=== PATIENT | female | born 1955 | race Caucasian/White ===

== ENCOUNTER → 2017-04-15 | Outpatient (CLI) | payer BC | END | disposition home or self-care (01) | LOC: LABPAT 10:41 | PROVIDERS: ATTEND Surgery | DX: Z01.810 Encounter for preprocedural cardiovascular examination (principal); Z01.818 Encounter for other preprocedural examination; I10 Essential (primary) hypertension | CPT/HCPCS: 36415; 86850; 86900; 86901; 93005 ==

== ENCOUNTER 2017-04-17 07:49 | Day surgery (SDC) | payer BC ==
[2017-04-12 11:42] VITALS: BMI 26.6
[~2017-04-17 07:49] MED LIST: DEXAMETHASONE SOD PHOSPHATE 10 MG/ML 1 ML VIAL IV ONE; FAMOTIDINE 20 MG/2 ML VIAL IV PRN; HEPARIN SODIUM,PORCINE 5,000 UNIT/ML 1 ML VIAL SQ ONE; LACTATED RINGERS 1,000 ML IV SCH; LIDOCAINE 1% 20 ML VIAL (10MG/ML) FOR IV START INTRADERMA PRN; MIDAZOLAM 2 MG/2 ML VIAL IV PRN; ceFAZolin 2 GM in SODIUM CHLORIDE 0.9% 100 ML IVPB ONE
[2017-04-17 08:23] VITALS: RESP 16
[2017-04-17] MEDS: ONDANSETRON 4 MG/2 ML VIAL IVP PRN ×2 (08:43→11:44)
[2017-04-17] MEDS ORDERED: SCOPOLAMINE 1.5MG/72HR PATCH TRANSDERM STA (08:44)
--- NOTE | 2017-04-17 08:47 | P.GSHP ---
History of Present Illness H&P Date: 04/17/17 Chief Complaint: Incarcerated incisional hernia This is a 61-year-old female with a history of perforated diverticulitis. She has developed an incarcerated incisional hernia located near her previous stoma site. She presents today for laparoscopic robotic-assisted repair. - Constitutional Constitutional: Reports as per HPI Past Medical History Past Medical History: Eye Disorder, Hyperlipidemia, Hypertension, Musculoskeletal Disorder, Thyroid Disorder Additional Past Medical History / Comment(s): HX PERFORATED BOWEL D/T DIVERTICULITIS, HAD MACULA PEEL ANTONIO EYES.CATARACTS; CHRONIC BACK PAIN. History of Any Multi-Drug Resistant Organisms: None Reported Past Surgical History: Bowel Resection, Orthopedic Surgery, Tubal Ligation Additional Past Surgical History / Comment(s): BOWEL RESECTION;COLONOSCOPY; Colostomy & then Reversal ; ANTONIO EYE PROC (RETINA). RIGHT THUMB Past Anesthesia/Blood Transfusion Reactions: Motion Sickness Past Psychological History: Anxiety, Depression Smoking Status: Former smoker Past Alcohol Use History: Rare Additional Past Alcohol Use History / Comment(s): STARTED SMOKING AT AGE 16, QUIT AT AGE 34, SMOKED 1PPD. Past Drug Use History: None Reported - Past Family History Mother Family Medical History: Cancer, Deep Vein Thrombosis (DVT) Medications and Allergies Home Medications Medication Instructions Recorded Confirmed Type Atorvastatin [Lipitor] 40 mg PO HS 06/28/16 04/17/17 History Baclofen [Lioresal] 20 mg PO BID PRN 06/28/16 04/17/17 History HYDROcodone/APAP 7.5-325MG [[place] 1 tab PO BID PRN 06/28/16 04/17/17 History 7.5-325] Levothyroxine Sodium [Synthroid] 88 mcg PO DAILY 06/28/16 04/17/17 History Losartan/Hydrochlorothiazide 1 tab PO HS@1800 06/28/16 04/17/17 History [Losartan-Hctz 100-12.5 mg Tab] Sertraline [Zoloft] 100 mg PO HS 06/28/16 04/17/17 History Allergies Allergy/AdvReac Type Severity Reaction Status Date / Time Sulfa (Sulfonamide Allergy Rash/Hives Verified 04/12/17 11:22 Antibiotics) Surgical - Exam Vital Signs Temp Pulse Resp BP Pulse Ox 97.6 F 69 16 137/62 96 04/17/17 08:21 04/17/17 08:21 04/17/17 08:21 04/17/17 08:21 04/17/17 08:21 - General well developed, no distress - Eyes PERRL - ENT normal pinna - Neck no masses - Respiratory normal expansion - Cardiovascular Rhythm: regular - Abdomen Abdomen: soft, non tender Hernia: incisional (Incisional hernia located at previous stoma site) Assessment and Plan Plan: Incarcerated incisional hernia. We'll perform laparoscopic robotic assistance repair. Patient aware the risk of conversion to open procedure due to possible adhesions.
[2017-04-17 08:51] LABS: Basophils % (A) 0 %; CH 29.8; CHCM 35.8; Eosinophils # (A) 0.1 k/uL (0-0.7); Eosinophils % (A) 2 %; HCT 40.9 % (34.0-46.0); HDW 3.35; HGB 14.4 gm/dL (11.4-16.0); Luc # (Auto) 0.17; Luc % (Auto) 2; Lymphocytes # (A) 2.4 k/uL (1.0-4.8); Lymphocytes % (A) 34 %; MCH 29.6 pg (25.0-35.0); MCHC 35.3 g/dL (31.0-37.0); MCV 83.8 fL (80.0-100.0); Mean Platelet Volume 7.8; Monocytes # (A) 0.3 k/uL (0-1.0); Monocytes % (A) 4 %; Neutrophils % (A) 57 %; RBC 4.88 m/uL (3.80-5.40); RDW 13.8 % (11.5-15.5); WBC 7.1 k/uL (3.8-10.6); WBC (Perox) 7.04
[2017-04-17 09:00] LABS: Anion Gap 10 mmol/L; Blood Urea Nitrogen 10 mg/dL (7-17); Carbon Dioxide 29 mmol/L (22-30); Chloride 105 mmol/L (98-107); Glucose 102 mg/dL (74-99); Non-African American GFR(MDRD) >60 (>60 ml/min/1.73 sqM); Potassium 3.7 mmol/L (3.5-5.1); Sodium 144 mmol/L (137-145)
[2017-04-17 09:01] LABS: Calcium 10.4 mg/dL (8.4-10.2)
[2017-04-17] MEDS ORDERED: PHENYLEPHRINE-0.9% NACL SYG 1 MG/10 ML SYRINGE ONE (09:08)
[2017-04-17] MEDS ORDERED: MIDAZOLAM 2 MG/2 ML VIAL ONE (09:08)
[2017-04-17] MEDS ORDERED: fentaNYL (PF) 50 MCG/ML 2 ML AMP ONE (09:08)
[2017-04-17] MEDS ORDERED: LIDOCAINE 1% INJ 10MG/ML (20 ML MDV) ONE (09:08)
[2017-04-17] MEDS ORDERED: SUCCINYLCHOLINE CHLORIDE 100 MG/5 ML SYR IV ONE (09:08)
[2017-04-17] MEDS ORDERED: GLYCOPYRROLATE 0.2 MG/ML 2 ML VIAL ONE (09:08)
[2017-04-17] MEDS ORDERED: PROPOFOL 10 MG/ML 20 ML VIAL IV ONE (09:08)
[2017-04-17] MEDS ORDERED: ROCURONIUM BROMIDE 10 MG/ML 10 ML VIAL IV ONE (09:08)
[2017-04-17] MEDS ORDERED: NEOSTIGMINE 1 MG/ML 10 ML VIAL ONE (09:08)
[2017-04-17] MEDS ORDERED: BUPIVACAIN-EPI 0.25%-1:200,000 30 ML VIAL SQ ONE (09:35)
--- NOTE | 2017-04-17 10:41 | P.OP ---
Date of Procedure: 04/17/17 Preoperative Diagnosis: Incarcerated incisional hernia Postoperative Diagnosis: Incarcerated incisional hernia Procedure(s) Performed: Laparoscopic robotic-assisted repair of incarcerated incisional hernia Implants: Anesthesia: ABELARDOA Surgeon: Prasad Bhagat Estimated Blood Loss (ml): 5 Pathology: none sent Condition: stable Disposition: PACU Indications for Procedure: Operative Findings: Description of Procedure: The patient's placed on the operating table in the supine position. She received general anesthesia. Her abdomen was prepped and draped in usual sterile fashion. The patient had an incarcerated incisional hernia located at her previous colostomy site. The skin incision sites were anesthetized 1% local Xylocaine. And then using a Veress needle in the right upper quadrant the peritoneal cavity is entered and then the peritoneal cavity was insufflated. After adequate insufflation the a 5 mm blade was trocar is placed in the right upper quadrant and then the Veress needle was removed and then a 8 mm robotic trochars placed in the right lower quadrant and a 12 mm trocar was placed in the right lateral position. Patient had extensive adhesions along her midline incision. Patient was docked to the robot. And then using the hook cautery and fenestrated bipolar grasper the adhesions were lysed. The incarcerated omentum was removed from the hernia site using left cautery and blunt and sharp dissection. The fascial defect was then closed using oh strap suture. And then the repair was buttressed with ventral light ST mesh this was secured with 20 the lock suture. The needles were cut and then the patient was undocked the robot. The needles were retrieved. The trochars withdrawn. The fascial 12 mm trocar site was closed with 0 Ethibond suture. Skin was closed interrupted 3-0 Monocryl suture. Dermabond applied. Patient was sent to recovery room stable condition.
[2017-04-17 11:01] VITALS: TEMP 97.2
[2017-04-17] MEDS ORDERED: KETOROLAC 30 MG/ML 1 ML VIAL IVP ONE (11:11)
[2017-04-17] MEDS: HYDROmorphone 1 MG/ML 1 ML SYRINGE IVP PRN ×4 (11:20→11:49)
[2017-04-17] MEDS ORDERED: ENALAPRILAT 1.25 MG/ML 1 ML VIAL IVP ONE (11:27)
[2017-04-17] MEDS ORDERED: HYDROcodone/APAP 7.5-325MG 1 EACH TAB PO ONE (13:44)
[2017-04-17 14:36] VITALS: BP 139/65; PULSE 60
== END 2017-04-17 14:36 | disposition home or self-care (01) ==
LOC: OR 07:49
PROVIDERS: ATTEND Surgery
DX: K43.0 Incisional hernia with obstruction, without gangrene (principal); K66.0 Peritoneal adhesions (postprocedural) (postinfection); I10 Essential (primary) hypertension; E78.5 Hyperlipidemia, unspecified; E07.9 Disorder of thyroid, unspecified; F41.9 Anxiety disorder, unspecified; F32.9 Major depressive disorder, single episode, unspecified; F39 Unspecified mood [affective] disorder; Z88.2 Allergy status to sulfonamides; Z79.899 Other long term (current) drug therapy; Z87.891 Personal history of nicotine dependence; Z98.51 Tubal ligation status; Z90.49 Acquired absence of other specified parts of digestive tract
CPT/HCPCS: 49655; 80048; 85025; C1781; J2250; J1644; J1100; J2710; J0690; J2405; J2001; J3010; J1885; J1170; J2370; J0330; J2704; 36415; 86850; 86900; 86901

== ENCOUNTER 2017-08-09 10:57 | Day surgery (SDC) | payer BC ==
[2017-08-06 12:14] VITALS: BMI 26.1
[~2017-08-09 10:57] MED LIST changes: -FAMOTIDINE 20 MG/2 ML VIAL IV PRN; -LACTATED RINGERS 1,000 ML IV SCH; +ONDANSETRON 4 MG/2 ML VIAL IVP ONE; +SCOPOLAMINE 1.5MG/72HR PATCH TRANSDERM ONE
[2017-08-09] MEDS ORDERED: LACTATED RINGERS 1,000 ML IV ONE ×3 (11:51→14:49)
--- NOTE | 2017-08-09 12:03 | P.GSHP ---
History of Present Illness H&P Date: 08/09/17 Chief Complaint: Incisional hernia This 61-year-old female referred from Dr. montejo. Patient has had a previous perforated diverticulitis with colostomy and subsequent reversal of colostomy. She has developed an incisional hernia located along her midline incision. She presents today for open repair of recurrent incisional hernia. Past Medical History Past Medical History: Hyperlipidemia, Hypertension, Musculoskeletal Disorder, Thyroid Disorder Additional Past Medical History / Comment(s): HX PERFORATED BOWEL D/T DIVERTICULITIS, CHRONIC BACK PAIN. History of Any Multi-Drug Resistant Organisms: None Reported Past Surgical History: Bowel Resection, Orthopedic Surgery, Tubal Ligation Additional Past Surgical History / Comment(s): BOWEL RESECTION;COLONOSCOPY; Colostomy & then Reversal ; ANTONIO EYE PROC (RETINA);Cataracts; RIGHT THUMB; Hernia repair Past Anesthesia/Blood Transfusion Reactions: Motion Sickness Smoking Status: Former smoker - Past Family History Mother Family Medical History: Cancer, Deep Vein Thrombosis (DVT) Medications and Allergies Home Medications Medication Instructions Recorded Confirmed Type Atorvastatin [Lipitor] 40 mg PO HS 06/28/16 08/06/17 History Baclofen [Lioresal] 20 mg PO BID PRN 06/28/16 08/06/17 History Levothyroxine Sodium [Synthroid] 88 mcg PO DAILY 06/28/16 08/06/17 History Losartan/Hydrochlorothiazide 1 tab PO HS@1800 06/28/16 08/06/17 History [Losartan-Hctz 100-12.5 mg Tab] Sertraline [Zoloft] 100 mg PO HS 06/28/16 08/06/17 History Docusate [Colace] 100 mg PO BID #20 capsule 04/17/17 08/06/17 Rx HYDROcodone/APAP 7.5-325MG [[place] 1 each PO Q4H PRN #60 tab 04/17/17 08/06/17 Rx 7.5] Cholecalciferol (Vitamin D3) 2,000 unit PO DAILY 08/06/17 08/06/17 History [Vitamin D3] Multivitamins, Thera [Multivitamin 1 tab PO DAILY 08/06/17 08/06/17 History (formulary)] Allergies Allergy/AdvReac Type Severity Reaction Status Date / Time Sulfa (Sulfonamide Allergy Rash/Hives Verified 08/06/17 12:01 Antibiotics) Surgical - Exam Vital Signs Temp Pulse Resp BP Pulse Ox 98.0 F 55 L 18 142/67 97 08/09/17 11:43 08/09/17 11:43 08/09/17 11:43 08/09/17 11:43 08/09/17 11:43 - General well developed, no distress - Eyes PERRL - ENT normal pinna - Neck no masses - Respiratory normal expansion - Cardiovascular Rhythm: regular - Abdomen Abdomen: soft, non tender Hernia: incisional Assessment and Plan Plan: Recurrent midline incisional hernia. We'll perform open repair .
[2017-08-09] MEDS ORDERED: HYDROmorphone (PF) 1 MG/ML ONE (13:05)
[2017-08-09] MEDS ORDERED: GLYCOPYRROLATE 0.2 MG/ML 2 ML VIAL ONE (13:05)
[2017-08-09] MEDS ORDERED: SUCCINYLCHOLINE CHLORIDE 100 MG/5 ML SYR IV ONE (13:05)
[2017-08-09] MEDS ORDERED: ROCURONIUM BROMIDE 10 MG/ML 10 ML VIAL IV ONE (13:05)
[2017-08-09] MEDS ORDERED: MIDAZOLAM 2 MG/2 ML VIAL ONE (13:05)
[2017-08-09] MEDS ORDERED: fentaNYL (PF) 50 MCG/ML 2 ML AMP ONE (13:05)
[2017-08-09] MEDS ORDERED: PROPOFOL 10 MG/ML 20 ML VIAL IV ONE (13:05)
[2017-08-09] MEDS ORDERED: NEOSTIGMINE 1 MG/ML 10 ML VIAL ONE (13:05)
[2017-08-09] MEDS ORDERED: hydrALAZINE HCL 20 MG/ML 1 ML VIAL ONE (13:05)
[2017-08-09] MEDS ORDERED: LIDOCAINE 1% INJ 10MG/ML (20 ML MDV) ONE (13:05)
[2017-08-09] MEDS ORDERED: HYDROmorphone 0.5 MG/0.5 ML SYRINGE IVP PRN (14:49)
[2017-08-09] MEDS ORDERED: METOCLOPRAMIDE 5 MG/ML 2 ML VIAL IVP PRN (14:49)
[2017-08-09] MEDS ORDERED: traMADol 50 MG TAB PO PRN (14:49)
[2017-08-09] MEDS ORDERED: NALOXONE 0.4 MG/ML 1 ML VIAL IV PRN (14:49)
[2017-08-09] MEDS ORDERED: ACETAMINOPHEN TAB 325 MG TAB PO PRN (14:49)
[2017-08-09] MEDS ORDERED: ONDANSETRON 4 MG/2 ML VIAL IVP PRN (14:49)
--- NOTE | 2017-08-09 14:58 | P.OP ---
Date of Procedure: 08/09/17 Preoperative Diagnosis: Recurrent incisional hernia Postoperative Diagnosis: Recurrent incisional hernia Procedure(s) Performed: Repair of recurrent incisional hernia with mesh Anesthesia: HENOK Surgeon: Prasad Bhagat Estimated Blood Loss (ml): 100 Pathology: none sent Condition: stable Disposition: PACU Description of Procedure: The patient's placed the operative table in the supine position. She received general anesthesia. Her abdomen was prepped and draped usual sterile fashion. The patient had a midline laparotomy scar. There were incisional hernias located at the superior and inferior portion of the scar. The skin was divided midline and the subcutaneous tissue divided. The fascial defect was visualized and appeared mostly the entire laparotomy scar. At this point electrocautery used to the subcutaneous tissues off of the fascia. The fascia was then repaired using 0 Ethibond pop-off suture. The fascia was then repaired using Bard soft mesh. This was secured with a secure strap tacker. The BRENDA drains placed on top of the repair and brought through separate stab incision and the drain secured with 2-0 nylon. Michael's fascia was closed with 0 Vicryl. Skin was closed felipa. TopiFoam dressing was applied. And an abdominal binder was applied to the patient. Patient was sent to recovery in stable condition.
[2017-08-09] MEDS: HYDROmorphone 0.5 MG/0.5 ML SYRINGE IVP PRN ×2 (15:24→15:30)
[2017-08-09] MEDS ORDERED: BACLOFEN 10 MG TAB PO PRN (16:16)
[2017-08-09] MEDS ORDERED: NON-FORMULARY DRUG (Losartan/Hydrochlorothiazide [Losartan-Hctz 100-12.5 Mg Tab] 1 TAB) PO SCH (18:00)
[2017-08-09] MEDS: KETOROLAC 30 MG/ML 1 ML VIAL IVP SCH ×2 (18:56→20:56)
[2017-08-09] MEDS: LACTATED RINGERS 1,000 ML IV SCH (18:59)
[2017-08-09] MEDS: HYDROcodone/APAP 5-325MG 1 EACH TAB PO PRN (19:20)
[2017-08-09] MEDS: HYDROCHLOROTHIAZIDE 12.5 MG CAP PO SCH (19:21)
[2017-08-09] MEDS: LOSARTAN 50 MG TAB PO SCH (19:21)
[2017-08-09] MEDS: ATORVASTATIN 40 MG TAB PO SCH (20:18)
[2017-08-09] MEDS: DOCUSATE 100 MG CAP PO SCH (20:18)
[2017-08-09] MEDS: SERTRALINE 100 MG TAB PO SCH (20:18)
[2017-08-09] MEDS ORDERED: DOCUSATE 100 MG CAP PO SCH (21:00)
[2017-08-10] MEDS: HYDROcodone/APAP 5-325MG 1 EACH TAB PO PRN ×4 (01:50→19:36)
[2017-08-10] MEDS: KETOROLAC 30 MG/ML 1 ML VIAL IVP SCH ×4 (03:24→20:34)
[2017-08-10] MEDS: LEVOTHYROXINE 88 MCG TAB PO SCH (05:38)
[2017-08-10] MEDS: LACTATED RINGERS 1,000 ML IV SCH ×3 (06:52→14:37)
[2017-08-10] MEDS: DOCUSATE 100 MG CAP PO SCH ×2 (07:42→20:35)
[2017-08-10] MEDS: ENOXAPARIN 40 MG/0.4 ML SYRINGE SQ SCH (07:42)
--- NOTE | 2017-08-10 12:00 | P.PN ---
Subjective Principal diagnosis: Incisional hernia 61-year-old female seen and examined at bedside. She is comfortable status post incisional hernia repair with mesh. Her BRENDA drain is in place with serosanguinous output. She states her pain is controlled. She is tolerating her regular diet. She has no additional complaints at this time. Objective - Vital Signs Vital signs: Vital Signs Temp 97.9 F 08/10/17 07:00 Pulse 81 08/10/17 07:00 Resp 16 08/10/17 07:00 BP 127/66 08/10/17 07:00 Pulse Ox 92 L 08/10/17 07:00 Intake & Output 08/09/17 08/10/17 08/10/17 18:59 06:59 18:59 Intake Total 1600 500 Output Total 160 1020 Balance 1440 -520 Weight 68.946 kg Intake: IV 1600 Intake, IV Titration 250 Amount Lactated Ringers 1,000 ml 250 @ 125 mls/hr IV .Q8H ONE Rx#:[id number] Oral 250 Output: Drainage 60 220 Abdomen 60 220 Urine 800 Estimated Blood Loss 100 - Constitutional General appearance: Present: cooperative, no acute distress - EENT Eyes: Present: EOMI, PERRLA ENT: Present: hearing grossly normal - Neck Neck: Present: normal ROM. Absent: lymphadenopathy, stridor - Respiratory Details: No difficulty with respiration - Cardiovascular Rhythm: regular Heart sounds: normal: S1, S2 - Gastrointestinal Gastrointestinal Comment(s): Soft, nontender, nondistended, no rebound, no guarding, incision site clean dry and intact, BRENDA drained with serosanguinous output. - Integumentary Integumentary: Present: normal turgor - Psychiatric Psychiatric: Present: A&O x's 3, appropriate affect, intact judgment & insight Assessment and Plan (1) Incisional hernia Status: Acute Plan: Status post incisional hernia repair with mesh Continue regular diet Obtain CBC BRENDA drain management Increase activity GI and DVT prophylaxis
[2017-08-10 12:25] LABS: Basophils % (A) 0 %; CH 28.6; CHCM 33.2; Eosinophils % (A) 0 %; HCT 33.9 % (34.0-46.0); HDW 2.82; HGB 11.3 gm/dL (11.4-16.0); Luc # (Auto) 0.16; Luc % (Auto) 2; Lymphocytes # (A) 2.5 k/uL (1.0-4.8); Lymphocytes % (A) 27 %; MCH 28.8 pg (25.0-35.0); MCHC 33.3 g/dL (31.0-37.0); MCV 86.6 fL (80.0-100.0); Mean Platelet Volume 8.6; Monocytes # (A) 0.4 k/uL (0-1.0); Monocytes % (A) 4 %; Neutrophils # (A) 6.3 k/uL (1.3-7.7); Neutrophils % (A) 67 %; RBC 3.91 m/uL (3.80-5.40); WBC 9.3 k/uL (3.8-10.6); WBC (Perox) 9.43
--- NOTE | 2017-08-10 13:13 | P.CONS ---
History of Present Illness - Reason for Consult Consult date: 08/10/17 Medical management - Chief Complaint Chronic incisional hernia - History of Present Illness This is a 61-year-old female with past medical history noted below significant for chronic incisional hernia that was admitted to the hospital and underwent repair of recurrent incisional hernia with mesh placement. She is postoperative day #1. She tolerated the procedure well. She is currently getting regular food. She is passing gas and having bowel movements. No events overnight. Pain is well controlled. Review of Systems Review of system: 14 points review of systems were obtained and were negative except to what were mentioned in the HPI. Past Medical History Past Medical History: Hyperlipidemia, Hypertension, Musculoskeletal Disorder, Thyroid Disorder Additional Past Medical History / Comment(s): HX PERFORATED BOWEL D/T DIVERTICULITIS, CHRONIC BACK PAIN. History of Any Multi-Drug Resistant Organisms: None Reported Past Surgical History: Bowel Resection, Orthopedic Surgery, Tubal Ligation Additional Past Surgical History / Comment(s): BOWEL RESECTION;COLONOSCOPY; Colostomy & then Reversal ; ANTONIO EYE PROC (RETINA);Cataracts; RIGHT THUMB; Hernia repair Past Anesthesia/Blood Transfusion Reactions: Motion Sickness Past Psychological History: Anxiety, Depression Smoking Status: Former smoker Past Alcohol Use History: Rare Additional Past Alcohol Use History / Comment(s): STARTED SMOKING AT AGE 16, QUIT AT AGE 34, SMOKED 1PPD. Past Drug Use History: None Reported - Past Family History Mother Family Medical History: Cancer, Deep Vein Thrombosis (DVT) Medications and Allergies Home Medications Medication Instructions Recorded Confirmed Type Atorvastatin [Lipitor] 40 mg PO HS 06/28/16 08/06/17 History Baclofen [Lioresal] 20 mg PO BID PRN 06/28/16 08/06/17 History Levothyroxine Sodium [Synthroid] 88 mcg PO DAILY 06/28/16 08/06/17 History Losartan/Hydrochlorothiazide 1 tab PO HS@1800 06/28/16 08/06/17 History [Losartan-Hctz 100-12.5 mg Tab] Sertraline [Zoloft] 100 mg PO HS 06/28/16 08/06/17 History Docusate [Colace] 100 mg PO BID #20 capsule 04/17/17 08/06/17 Rx HYDROcodone/APAP 7.5-325MG [[place] 1 each PO Q4H PRN #60 tab 04/17/17 08/06/17 Rx 7.5] Cholecalciferol (Vitamin D3) 2,000 unit PO DAILY 08/06/17 08/06/17 History [Vitamin D3] Multivitamins, Thera [Multivitamin 1 tab PO DAILY 08/06/17 08/06/17 History (formulary)] Allergies Allergy/AdvReac Type Severity Reaction Status Date / Time Sulfa (Sulfonamide Allergy Rash/Hives Verified 08/06/17 12:01 Antibiotics) Physical Exam Vitals: Vital Signs Temp Pulse Pulse Resp BP Pulse Ox 08/10/17 07:00 97.9 F 81 16 127/66 92 L 08/09/17 23:59 98.1 F 68 16 119/61 94 L 08/09/17 19:14 97.9 F 72 17 150/72 98 08/09/17 17:59 86 140/65 08/09/17 17:45 86 130/67 08/09/17 17:30 82 123/61 08/09/17 17:15 79 129/69 08/09/17 17:00 79 135/72 08/09/17 16:45 79 131/59 08/09/17 16:30 86 135/68 08/09/17 16:15 93 148/85 08/09/17 16:00 97.3 F L 96 16 154/71 93 L 08/09/17 15:25 90 16 140/60 94 L 08/09/17 15:10 89 16 148/68 97 08/09/17 14:55 84 16 137/63 97 08/09/17 14:40 98.3 F 87 15 141/63 98 Intake and Output 08/09/17 08/10/17 08/10/17 22:59 06:59 14:59 Intake Total 800 Output Total 920 160 Balance -120 -160 Intake: IV 300 Intake, IV Titration 250 Amount Lactated Ringers 1,000 ml 250 @ 125 mls/hr IV .Q8H ONE Rx#:[id number] Oral 250 Output: Drainage 120 160 Abdomen 120 160 Urine 800 Other: Weight 68.946 kg General: The patient is awake and alert, in no distress Eye: there is normal conjunctiva bilaterally. Neck: The neck is supple, there is no JVD. Cardiovascular: Normal S1-S2, no S3-S4, no murmurs. Respiratory: Lungs clear to auscultation bilaterally Gastrointestinal: Abdomen is soft, nontender Musculoskeletal: There is no pedal edema. Neurological:. Speech is normal. Skin: Skin is warm and dry Results CBC & Chem 7: 08/10/17 12:04 Labs: Abnormal Lab Results - Last 24 Hours (Table) 08/10/17 Range/Units 12:04 Hgb 11.3 L (11.4-16.0) gm/dL Hct 33.9 L (34.0-46.0) % Assessment and Plan Plan: 1. postoperative day #1 status post repair of recurrent incisional hernia with mesh placement: Continue postoperative care. Gen. surgery following closely. 2. Hypothyroidism maintained on levothyroxin 3. Mixed hyperlipidemia on Lipitor 4. DVT prophylaxis with subcu Lovenox Today, I reviewed her medication list and lab work results. Encouraged ambulation. Repeat lab work in the morning. Continue current regimen otherwise. Thank you very much for the consultation. I will continue to follow up on her closely.
[2017-08-10] MEDS: MULTIVITAMINS, THERA 1 EACH TAB PO SCH (13:15)
[2017-08-10] MEDS: CHOLECALCIFEROL 1,000 UNIT TAB PO SCH (13:15)
[2017-08-10] MEDS: HYDROCHLOROTHIAZIDE 12.5 MG CAP PO SCH (19:36)
[2017-08-10] MEDS: LOSARTAN 50 MG TAB PO SCH (19:37)
[2017-08-10] MEDS: ATORVASTATIN 40 MG TAB PO SCH (20:35)
[2017-08-10] MEDS: SERTRALINE 100 MG TAB PO SCH (20:35)
[2017-08-10 21:18] VITALS: RESP 16
[2017-08-11] MEDS: HYDROcodone/APAP 5-325MG 1 EACH TAB PO PRN ×2 (01:43→09:09)
[2017-08-11] MEDS: KETOROLAC 30 MG/ML 1 ML VIAL IVP SCH ×3 (05:39→11:47)
[2017-08-11] MEDS: LEVOTHYROXINE 88 MCG TAB PO SCH (05:52)
[2017-08-11 07:42] LABS: Basophils % (A) 1 %; CH 29.5; CHCM 33.7; Eosinophils % (A) 0 %; HCT 32.8 % (34.0-46.0); HDW 2.85; Luc # (Auto) 0.14; Luc % (Auto) 2; Lymphocytes # (A) 2.4 k/uL (1.0-4.8); Lymphocytes % (A) 34 %; MCH 29.5 pg (25.0-35.0); MCHC 33.6 g/dL (31.0-37.0); MCV 87.9 fL (80.0-100.0); Mean Platelet Volume 8.9; Monocytes # (A) 0.4 k/uL (0-1.0); Monocytes % (A) 6 %; Neutrophils % (A) 58 %; RBC 3.72 m/uL (3.80-5.40); RDW 14.7 % (11.5-15.5); WBC 6.9 k/uL (3.8-10.6)
[2017-08-11 08:08] LABS: ALT 24 U/L (9-52); AST 19 U/L (14-36); Alkaline Phosphatase 67 U/L (38-126); Anion Gap 6 mmol/L; Blood Urea Nitrogen 12 mg/dL (7-17); Calcium 9.7 mg/dL (8.4-10.2); Carbon Dioxide 29 mmol/L (22-30); Chloride 103 mmol/L (98-107); Glucose 84 mg/dL (74-99); Non-African American GFR(MDRD) >60 (>60 ml/min/1.73 sqM); Potassium 4.2 mmol/L (3.5-5.1); Sodium 138 mmol/L (137-145); Total Bilirubin 0.3 mg/dL (0.2-1.3); Total Protein 5.5 g/dL (6.3-8.2)
[2017-08-11 09:08] VITALS: BP 126/68; PULSE 79; TEMP 97.9
[2017-08-11] MEDS: DOCUSATE 100 MG CAP PO SCH (09:09)
[2017-08-11] MEDS: ENOXAPARIN 40 MG/0.4 ML SYRINGE SQ SCH (09:13)
--- NOTE | 2017-08-11 09:51 | P.DS ---
Providers Date of admission: 08/09/2017 Expected date of discharge: 08/11/17 Attending physician: Prasad Bhagat Consults: 08/09/17 14:49 Consult Physician Routine Consulting Provider: Mati Hall Consult Reason/Comments: Medical management Do you want consulting provider notified?: Yes Primary care physician: Stated None - Discharge Diagnosis(es) (1) Incisional hernia Current Visit: Yes Status: Acute Hospital Course: 61-year-old female presented for an elective incisional hernia repair. Postoperatively, the patient was placed on the surgical floor. The patient had a BRENDA drain in place. Postoperative day #1 the patient's pain improved. There was sanguinous output from the drain and hemoglobin was checked. On postoperative day #2 hemoglobin remained stable and output decreased from the BRENDA drain. The patient was then cleared for discharge. She is tolerating a regular diet and her pain is under control. Procedures: Incisional hernia repair with mesh Patient Condition at Discharge: Good Plan - Discharge Summary New Discharge Prescriptions: New Hydrochlorothiazide [Hydrodiuril] 12.5 mg PO 1800 cap HYDROcodone/APAP 7.5-325MG [[employer] 7.5-325] 1 tab PO Q6HR PRN #20 tab PRN Reason: Pain Continue Baclofen [Lioresal] 20 mg PO BID PRN PRN Reason: MUSCLE SPASMS Sertraline [Zoloft] 100 mg PO HS Levothyroxine Sodium [Synthroid] 88 mcg PO DAILY Atorvastatin [Lipitor] 40 mg PO HS Losartan/Hydrochlorothiazide [Losartan-Hctz 100-12.5 mg Tab] 1 tab PO HS@1800 Docusate [Colace] 100 mg PO BID #20 capsule Multivitamins, Thera [Multivitamin (formulary)] 1 tab PO DAILY Cholecalciferol (Vitamin D3) [Vitamin D3] 2,000 unit PO DAILY Discontinued HYDROcodone/APAP 7.5-325MG [[employer] 7.5] 1 each PO Q4H PRN #60 tab PRN Reason: Pain Discharge Medication List Atorvastatin [Lipitor] 40 mg PO HS 06/28/16 [History] Baclofen [Lioresal] 20 mg PO BID PRN 06/28/16 [History] Levothyroxine Sodium [Synthroid] 88 mcg PO DAILY 06/28/16 [History] Losartan/Hydrochlorothiazide [Losartan-Hctz 100-12.5 mg Tab] 1 tab PO HS@1800 [History] Sertraline [Zoloft] 100 mg PO HS 06/28/16 [History] Docusate [Colace] 100 mg PO BID #20 capsule 04/17/17 [Rx] Cholecalciferol (Vitamin D3) [Vitamin D3] 2,000 unit PO DAILY 08/06/17 [History] Multivitamins, Thera [Multivitamin (formulary)] 1 tab PO DAILY 08/06/17 [History ] HYDROcodone/APAP 7.5-325MG [[employer] 7.5-325] 1 tab PO Q6HR PRN #20 tab 08/11/17 [ Rx] Hydrochlorothiazide [Hydrodiuril] 12.5 mg PO 1800 cap 08/11/17 [Rx] Follow up Appointment(s)/Referral(s): Prasad Bhagat MD [STAFF PHYSICIAN] - 1 Week Patient Instructions/Handouts: *Sur[facility] - (Anesthesia) Discharge Instructions Outpatient Surgery, *[facility] - Scopalamine Patch Instructions, Kris-Green Drain Care (DC), Open Herniorrhaphy (DC), Incisional Hernia (DC) Activity/Diet/Wound Care/Special Instructions: Okay to remove dressing on 08/12/2017 Okay to shower Avoid putting soap directly on incision Discharge Disposition: HOME SELF-CARE
[2017-08-11] MEDS ORDERED: KETOROLAC 30 MG/ML 1 ML VIAL IVP SCH (11:45)
--- NOTE | 2017-08-11 12:30 | P.PN ---
Subjective Patient is cleared for discharge home today. No events overnight. Objective - Vital Signs Vital signs: Vital Signs Temp 97.9 F 08/11/17 07:00 Pulse 79 08/11/17 07:00 Resp 16 08/11/17 07:00 BP 126/68 08/11/17 07:00 Pulse Ox 94 L 08/11/17 07:00 Intake & Output 08/10/17 08/11/17 08/11/17 18:59 06:59 18:59 Intake Total 175 Output Total 885 140 Balance -710 -140 Intake: Oral 175 Output: Drainage 85 140 Abdomen 85 140 Urine 800 Other: # Voids 1 - Exam General: The patient is awake and alert, in no distress Eye: there is normal conjunctiva bilaterally. Neck: The neck is supple, there is no JVD. Cardiovascular: Normal S1-S2, no S3-S4, no murmurs. Respiratory: Lungs clear to auscultation bilaterally Gastrointestinal: Abdomen is soft, nontender Musculoskeletal: There is no pedal edema. Neurological:. Speech is normal. Skin: Skin is warm and dry - Labs CBC & Chem 7: 08/11/17 06:43 08/11/17 06:43 Labs: Abnormal Lab Results - Last 24 Hours (Table) 08/10/17 08/11/17 08/11/17 Range/Units 12:04 06:43 06:43 RBC 3.72 L (3.80-5.40) m/uL Hgb 11.3 L 11.0 L (11.4-16.0) gm/dL Hct 33.9 L 32.8 L (34.0-46.0) % Total Protein 5.5 L (6.3-8.2) g/dL Albumin 3.1 L (3.5-5.0) g/dL Assessment and Plan Plan: 1. postoperative day #2 status post repair of recurrent incisional hernia with mesh placement: Continue postoperative care. 2. Hypothyroidism maintained on levothyroxin 3. Mixed hyperlipidemia on Lipitor 4. DVT prophylaxis with subcu Lovenox Today, I reviewed her medication list and lab work results. Patient is medically cleared for discharge.
[2017-08-11] MEDS: CHOLECALCIFEROL 1,000 UNIT TAB PO SCH (12:55)
[2017-08-11] MEDS: MULTIVITAMINS, THERA 1 EACH TAB PO SCH (12:55)
== END 2017-08-11 14:37 | disposition home or self-care (01) ==
LOC: OR 10:57 → 3SUR 14:38 → OR 08-11 14:37
PROVIDERS: ATTEND Surgery
DX: K43.2 Incisional hernia without obstruction or gangrene (principal); Z87.19 Personal history of other diseases of the digestive system; E78.2 Mixed hyperlipidemia; I10 Essential (primary) hypertension; E03.9 Hypothyroidism, unspecified; G89.29 Other chronic pain; M54.9 Dorsalgia, unspecified; Z87.891 Personal history of nicotine dependence; F41.9 Anxiety disorder, unspecified; F32.9 Major depressive disorder, single episode, unspecified; Z79.899 Other long term (current) drug therapy; Z88.2 Allergy status to sulfonamides
CPT/HCPCS: 49565; 49568; 80053; 85025 ×2; C1781; J2250; J0360; J1644; J1100; J2710; J0690; J2405; J2001; J1650 ×2; J3010; J1885 ×3; J1170 ×2; J0330; J2704

== ENCOUNTER → 2021-05-09 | Outpatient (CLI) | payer MEDICARE ==
--- NOTE | 2021-05-10 08:44 | NM ---
EXAMINATION TYPE: NM parathyroid w/spect DATE OF EXAM: 05/09/2021 COMPARISON: NONE HISTORY: Hypercalcemia TECHNIQUE: Following administration of 25.5 mCi Tc99m Sestamibi. Anterior projection images of the neck and ches t were obtained 10 minutes and 3.5 hours post injection. SPECT images of the neck and chest were obt ained and reconstructed in three axes. FINDINGS: Thyroid tracer washout: Delayed images demonstrate near-complete tracer washout from the thyroid. Parathyroid uptake: Delayed imaging does demonstrates some faint residual uptake within the thyroid b ed bilaterally greater on the left. Normal uptake: There is physiological tracer uptake in the myocardium, liver, salivary glands, and th yroid gland. IMPRESSION: Faint residual uptake noted within the bilateral thyroid bed greater on the left. Recommend CT scan o f the soft tissue of the neck.
== END | disposition home or self-care (01) ==
LOC: RADNMMAIN 11:08
PROVIDERS: ATTEND Family Medicine
DX: E83.52 Hypercalcemia (principal)
CPT/HCPCS: 78071; A9500

== ENCOUNTER → 2021-05-31 | Outpatient (CLI) | payer MEDICARE ==
--- NOTE | 2021-05-31 14:45 | MR ---
EXAMINATION TYPE: MR shoulder LT wo con DATE OF EXAM: 05/31/2021 COMPARISON: 05/17/2021 HISTORY: L shoulder pain TECHNIQUE: Multiplanar, multisequence imaging of the left shoulder is performed without contrast. FINDINGS: Rotator Cuff: There is a full-thickness tear of the anterior fibers of the supraspinatus tendon 8 wit h thinning of the remainder of the tendon at the footplate. Infraspinatus tendinopathy is present. Th ere is subscapularis tendinopathy with fraying at the footplate. The teres minor tendon is intact. Acromioclavicular Joint: Degenerative changes are noted in the left acromioclavicular joint. There is fluid in the subacromial/subdeltoid bursa. Glenohumeral Joint: Defects of the glenohumeral joint with osteophytosis and subchondral edema and cy stic formation and small glenohumeral joint effusion. Labrum: There is a complex tear is seen throughout the anteroinferior labrum. Biceps Tendon: There is tendinopathy and partial-thickness tearing of the intra-articular portion of the long head biceps tendon. Bone marrow signal: No focal abnormal marrow signal is appreciated. Other: No additional significant abnormality is appreciated. IMPRESSION: 1. Full-thickness tear of the anterior leading fibers of the supraspinatus tendon with thinning of th e remainder of the tendon at the footplate. 2. Subscapularis tendinopathy with fraying at the footplate. 3. Infraspinatus tendinopathy. 4. Degenerative changes of the glenohumeral and acromioclavicular joint with fluid in the lateral hum eral joint and subacromial/subdeltoid bursa.
== END | disposition home or self-care (01) ==
LOC: RADMRIMAIN 12:50
PROVIDERS: ATTEND Orthopaedic Surgery
DX: M75.122 Complete rotator cuff tear or rupture of left shoulder, not specified as traumatic (principal); M19.012 Primary osteoarthritis, left shoulder; M67.814 Other specified disorders of tendon, left shoulder

== ENCOUNTER → 2021-06-15 | Outpatient (CLI) | payer MEDICARE ==
--- NOTE | 2021-06-15 14:11 | NM ---
EXAMINATION TYPE: NM stress cardiolite complete DATE OF EXAM: 06/15/2021 COMPARISON: NONE HISTORY: Chest pain, cardiac arrhythmia TECHNIQUE: After the intravenous administration of 9.3 mCi Tc 99m Sestamibi - Rest images obtained 4 5 minutes post injection. The patient exercised using a SHLOMO protocol and 1 minute prior to peak e xercise was injected with 25.1 mCi Tc 99m Sestamibi - Stress images obtained 20 minutes post injectio n. FINDINGS: Targeted heart rate was achieved during performance of the study. Review of stress and rest SPECT pavel ges demonstrates question of a small area of stress-induced reversible ischemia involving the inferio r wall septum. Gated analysis shows normal wall motion with an estimated left ventricular ejection f raction of 70 %. IMPRESSION: 1. Findings suspicious for small areas stress-induced reversible ischemia inferior wall of the myocar dial septum correlate clinically.
--- NOTE | 2021-06-15 16:04 | EST ---
EXERCISE STRESS AGE: 65 SEX: F HT: 5'4" WT: 150 lbs. PROTOCOL: Varinder STAGE: 3 DURATION OF EXERCISE: 7:00 HEART RATE REST: 46 BLOOD PRESSURE REST: 171/64 MAXIMUM HEART RATE ACHIEVED: 143 MAXIMUM BLOOD PRESSURE: 213/83 85% MPHR: 131 100% MPHR: 154 METS: 8.3 INDICATIONS: Arrhythmia CLINICAL INFORMATION: Baseline rhythm is sinus mechanism, rate 46, normal axis and intervals. Nonspecific ST- T wave changes. Baseline blood pressure 171/64 minute Hg. The patient exercised on Varinder protocol for 7 minutes, reaching a peak rate 143 beats per minute which is equal to 93% maximum predicted heart rate. Peak blood pressure 213/83 mmHg. Test was terminated secondary to fatigue. There was no chest pain. Electrocardiograph monitoring revealed a 1-1/[address]-segment depression that resolved gradually in recovery. Rare PVCs were noted. IMPRESSION: 1. Average exercise tolerance with no chest discomfort. 2. Abnormal stress echocardiogram with 1-1/[address]-segment depression with subsequently downsloping changes in the recovery. Those findings are suggestive of stress-induced ischemia. 3. Nuclear images will be reported separately. MMODL / IJN: [id number] /
== END | disposition home or self-care (01) ==
LOC: RADNMMAIN 08:21
PROVIDERS: ATTEND Family Medicine
DX: I49.9 Cardiac arrhythmia, unspecified (principal)
CPT/HCPCS: 93017; 78452; A9500

== ENCOUNTER 2022-04-12 08:33 | Day surgery (SDC) | payer MEDICARE ==
[2022-04-11 10:57] VITALS: BMI 27.4
[~2022-04-12 08:33] MED LIST changes: -DEXAMETHASONE SOD PHOSPHATE 10 MG/ML 1 ML VIAL IV ONE; -HEPARIN SODIUM,PORCINE 5,000 UNIT/ML 1 ML VIAL SQ ONE; +LACTATED RINGERS 1,000 ML IV SCH; -LIDOCAINE 1% 20 ML VIAL (10MG/ML) FOR IV START INTRADERMA PRN; -MIDAZOLAM 2 MG/2 ML VIAL IV PRN; -ONDANSETRON 4 MG/2 ML VIAL IVP ONE; -SCOPOLAMINE 1.5MG/72HR PATCH TRANSDERM ONE; -ceFAZolin 2 GM in SODIUM CHLORIDE 0.9% 100 ML IVPB ONE
[2022-04-12 09:24] VITALS: TEMP 97.9
[2022-04-12] MEDS ORDERED: PROPOFOL 10 MG/ML 20 ML VIAL IV ONE (10:48)
--- NOTE | 2022-04-12 10:51 | P.GSHP ---
History of Present Illness H&P Date: 04/12/22 Chief Complaint: GERD This a 66-year-old female who presents today for EGD. She's had complaints of GERD. She describes reflux of food intermittently. Past Medical History Past Medical History: Hyperlipidemia, Hypertension, Musculoskeletal Disorder, Thyroid Disorder Additional Past Medical History / Comment(s): Hx perforated bowel D/T Diverticulitis; c/o some vomiting after eating. Chronic back pain. Urine leakage. History of Any Multi-Drug Resistant Organisms: None Reported Past Surgical History: Bowel Resection, Hernia Repair, Orthopedic Surgery, Tubal Ligation Additional Past Surgical History / Comment(s): COLONOSCOPY; Bowel Resection w/ Colostomy & then Reversal; Bilat eye proc (RetinaNA); Cataracts; Rt Thumb; Hernia repair x2 Past Anesthesia/Blood Transfusion Reactions: Motion Sickness, Postoperative Nausea & Vomiting (PONV) Past Psychological History: Anxiety, Depression Smoking Status: Former smoker Past Alcohol Use History: Rare Additional Past Alcohol Use History / Comment(s): STARTED SMOKING AT AGE 16, QUIT AT AGE 34, SMOKED 1PPD. Past Drug Use History: None Reported - Past Family History Mother Family Medical History: Cancer, Deep Vein Thrombosis (DVT) Additional Family Medical History / Comment(s): breast cancer w/ mets to bones Medications and Allergies Home Medications Medication Instructions Recorded Confirmed Type Atorvastatin [Lipitor] 40 mg PO HS 06/28/16 04/11/22 History Baclofen [Lioresal] 20 mg PO BID PRN 06/28/16 04/11/22 History Levothyroxine Sodium [Synthroid] 75 mcg PO DAILY 06/28/16 04/11/22 History Losartan/Hydrochlorothiazide 1 tab PO DAILY 06/28/16 04/11/22 History [Losartan-Hctz 100-12.5 mg Tab] Sertraline [Zoloft] 100 mg PO AC-SUPPER 06/28/16 04/11/22 History Cholecalciferol (Vitamin D3) 2,000 unit PO DAILY 08/06/17 04/11/22 History [Vitamin D3] Multivitamins, Thera [Multivitamin 1 tab PO DAILY 08/06/17 04/11/22 History (formulary)] HYDROcodone/APAP 7.5-325MG [[place] 1 tab PO Q6HR PRN #20 tab 08/11/17 04/11/22 Rx 7.5-325] ARIPiprazole [Abilify] 2 mg PO DAILY 04/11/22 04/11/22 History Docusate [Colace] 100 mg PO BID PRN 04/11/22 04/11/22 History Ferrous Sulfate [Feosol] 325 mg PO Q7D 04/11/22 04/11/22 History Allergies Allergy/AdvReac Type Severity Reaction Status Date / Time Sulfa (Sulfonamide Allergy Rash/Hives Verified 04/11/22 10:35 Antibiotics) Surgical - Exam Vital Signs Temp Pulse Resp BP Pulse Ox 97.9 F 68 20 183/88 99 04/12/22 09:06 04/12/22 09:06 04/12/22 09:06 04/12/22 09:06 04/12/22 09:06 - General well developed, well nourished, no distress - Eyes PERRL - ENT normal pinna - Neck no masses - Respiratory normal expansion - Cardiovascular Rhythm: regular - Abdomen Abdomen: soft, non tender Assessment and Plan Assessment: GERD. We'll perform EGD.
--- NOTE | 2022-04-12 11:15 | P.OP ---
Date of Procedure: 04/12/22 Preoperative Diagnosis: GERD History of diverticulitis Postoperative Diagnosis: Antral gastritis Hiatal hernia Esophagitis Mild diverticulosis Procedure(s) Performed: EGD Colonoscopy Anesthesia: MAC Surgeon: Prasad Bhagat Pathology: other (Antrum, esophagus) Condition: stable Disposition: PACU Description of Procedure: The patient's placed on the endoscopy table lateral position. She received IV sedation. The gastroscope placed oropharynx passed in the esophagus and stomach. Scope was then placed through the pylorus. The first and second portion duodenum appeared normal. Scope was then brought back the antrum was mildly inflamed. A biopsies performed. The scope was then retroflexed and the patient's found have a moderate sliding hiatal hernia. The GE junction was at 38 cm. The distal esophagus appeared inflamed. Biopsies performed. The proximal esophagus appeared normal. Scope withdrawn for patient. Next digital rectal exam was performed. This revealed no ebonized. The clot scope was then placed patient anus passed throughout the entire colon. The ileocecal valve was visualized. The cecum, ascending and transverse colon appeared normal. In the descending and colon there was some mild diverticular changes. Patient previous sigmoid resection. The rectum appeared normal. There is no evidence of any inflamed or changes of the colon rectal anastomosis. The scope was withdrawn for patient.
[2022-04-12 11:40] VITALS: BP 159/79; PULSE 52; RESP 18
== END 2022-04-12 11:53 | disposition home or self-care (01) ==
LOC: ORWHC2ENDO 08:33
PROVIDERS: ATTEND Surgery
DX: K31.9 Disease of stomach and duodenum, unspecified (principal); K21.9 Gastro-esophageal reflux disease without esophagitis; K31.A0 Gastric intestinal metaplasia, unspecified; K44.9 Diaphragmatic hernia without obstruction or gangrene; Z90.49 Acquired absence of other specified parts of digestive tract; I10 Essential (primary) hypertension; E78.5 Hyperlipidemia, unspecified; E07.9 Disorder of thyroid, unspecified; Z87.19 Personal history of other diseases of the digestive system; G89.29 Other chronic pain; M54.9 Dorsalgia, unspecified; R32 Unspecified urinary incontinence; Z98.51 Tubal ligation status; Z98.49 Cataract extraction status, unspecified eye; F41.9 Anxiety disorder, unspecified; F32.A Depression, unspecified; Z87.891 Personal history of nicotine dependence; Z80.3 Family history of malignant neoplasm of breast; Z80.8 Family history of malignant neoplasm of other organs or systems; Z82.49 Family history of ischemic heart disease and other diseases of the circulatory system; Z79.890 Hormone replacement therapy; Z79.899 Other long term (current) drug therapy; Z88.2 Allergy status to sulfonamides
CPT/HCPCS: 88305; 45378; 43239; J2704

== ENCOUNTER → 2023-06-10 | Outpatient (CLI) | payer MEDICARE ==
--- NOTE | 2023-06-10 12:00 | MR ---
EXAMINATION TYPE: MR brain wo con DATE OF EXAM: 06/10/2023 6:23 AM COMPARISON: None. CLINICAL INDICATION:Female, 67 years old with history of R29.818 OTHER SYMPTOMS AND SIGNS,R41.3,R26.8 9; Dizziness, confusion, memory loss, loss of balance TECHNIQUE: Multi planar, multi sequence imaging was performed through the brain including: T1, T2, In version recovery, Diffusion weighted imaging, and gradient echo imaging. No gadolinium was given. FINDINGS: Ventricular dilation in proportion to cerebral atrophy. Scattered foci of high T2 signal intensity ar e seen within the periventricular white matter. Midline structures show no abnormality. Diffusion-joaquim ghted imaging shows no evidence of restricted diffusion. The susceptibility weighted images do not re veal any evidence for micro-hemorrhage. The bone marrow signal is within normal limits. Paranasal sinuses and mastoid air cells: No significant paranasal sinus disease. Visualized orbits: Orbital contents are intact. IMPRESSION: 1. No evidence of intracranial mass or acute/subacute infarct. 2. Minimal Nonspecific white matter changes, likely secondary to small vessel ischemic disease.
== END | disposition home or self-care (01) ==
LOC: RADMRIMAIN 05:44
PROVIDERS: ATTEND Family Medicine
DX: R90.82 White matter disease, unspecified (principal); R41.3 Other amnesia; R26.81 Unsteadiness on feet; R26.89 Other abnormalities of gait and mobility; R42 Dizziness and giddiness; R41.0 Disorientation, unspecified; R29.818 Other symptoms and signs involving the nervous system
CPT/HCPCS: 70551

== ENCOUNTER 2024-03-13 16:55 | Emergency (ER) | payer MEDICARE ==
[2024-03-13 17:26] VITALS: RESP 18; TEMP 98.1
--- NOTE | 2024-03-13 17:38 | ED ---
Abdominal Pain HPI - General Chief Complaint: Abdominal Pain Stated Complaint: bowel obstruction Time Seen by Provider: 03/13/24 17:15 Source: patient, RN notes reviewed Mode of arrival: ambulatory Limitations: no limitations - History of Present Illness Initial Comments: 68-year-old female with history of diverticulitis, bowel resection with colostomy and reversal, and hernia repair x 2 presenting to the ER with chief complaint of abdominal pain. Patient states she was sent by her PCP due to concern for bowel obstruction. Patient states that her last bowel movement was 3 weeks ago. She has been taking lactulose and has had 2 consecutive x-rays done by PCP. Patient states she was called by their office and sent to the ER as they were concerned about a bowel obstruction. Patient states she has been having bowel movements that are pure liquid but was told that there is still stool in her colon. States her abdominal pain is diffuse and rates it at a 4 out of 10 currently. States she has had some nausea and vomiting especially after meals. She states the abdominal pain began about 1 week ago. Denies fever, chills - Related Data Home Medications Medication Instructions Recorded Confirmed Atorvastatin [Lipitor] 40 mg PO HS 06/28/16 04/11/22 Baclofen [Lioresal] 20 mg PO BID PRN 06/28/16 04/11/22 Levothyroxine Sodium [Synthroid] 75 mcg PO DAILY 06/28/16 04/11/22 Losartan/Hydrochlorothiazide 1 tab PO DAILY 06/28/16 04/11/22 [Losartan-Hctz 100-12.5 mg Tab] Sertraline [Zoloft] 100 mg PO AC-SUPPER 06/28/16 04/11/22 Cholecalciferol (Vitamin D3) 2,000 unit PO DAILY 08/06/17 04/11/22 [Vitamin D3] Multivitamins, Thera [Multivitamin 1 tab PO DAILY 08/06/17 04/11/22 (formulary)] ARIPiprazole [Abilify] 2 mg PO DAILY 04/11/22 04/11/22 Docusate [Colace] 100 mg PO BID PRN 04/11/22 04/11/22 Ferrous Sulfate [Feosol] 325 mg PO Q7D 04/11/22 04/11/22 Previous Rx's Medication Instructions Recorded HYDROcodone/APAP 7.5-325MG [[place] 1 tab PO Q6HR PRN #20 tab 08/11/17 7.5325] Allergies Allergy/AdvReac Type Severity Reaction Status Date / Time Sulfa (Sulfonamide Allergy Rash/Hives Verified 03/13/24 17:08 Antibiotics) Review of Systems ROS Statement: Those systems with pertinent positive or pertinent negative responses have been documented in the HPI. ROS Other: All systems not noted in ROS Statement are negative. Past Medical History Past Medical History: Hyperlipidemia, Hypertension, Musculoskeletal Disorder, Thyroid Disorder Additional Past Medical History / Comment(s): Hx perforated bowel D/T Diverticulitis; c/o some vomiting after eating. Chronic back pain. Urine leakage. History of Any Multi-Drug Resistant Organisms: None Reported Past Surgical History: Bowel Resection, Hernia Repair, Orthopedic Surgery, Tubal Ligation Additional Past Surgical History / Comment(s): COLONOSCOPY; Bowel Resection w/ Colostomy & then Reversal; Bilat eye proc (RetinaNA); Cataracts; Rt Thumb; Hernia repair x2 Past Anesthesia/Blood Transfusion Reactions: Motion Sickness, Postoperative Nausea & Vomiting (PONV) Past Psychological History: Anxiety, Depression Smoking Status: Former smoker Past Alcohol Use History: Rare Past Drug Use History: None Reported - Past Family History Mother Family Medical History: Cancer, Deep Vein Thrombosis (DVT) Additional Family Medical History / Comment(s): breast cancer w/ mets to bones General Exam Limitations: no limitations General appearance: alert, in no apparent distress Head exam: Present: atraumatic, normocephalic, normal inspection Eye exam: Present: normal appearance, PERRL, EOMI. Absent: scleral icterus, conjunctival injection, periorbital swelling Respiratory exam: Present: normal lung sounds bilaterally. Absent: respiratory distress, wheezes, rales, rhonchi, stridor Cardiovascular Exam: Present: regular rate, normal rhythm, normal heart sounds. Absent: systolic murmur, diastolic murmur, rubs, gallop, clicks GI/Abdominal exam: Present: soft, normal bowel sounds. Absent: distended, tenderness, guarding, rebound, rigid Back exam: Absent: CVA tenderness (R), CVA tenderness (L) Psychiatric exam: Present: normal affect, normal mood Skin exam: Present: warm, dry, intact, normal color. Absent: rash Course Vital Signs 03/13/24 03/13/24 03/13/24 17:05 20:10 23:05 Temperature 98.1 F Pulse Rate 77 65 60 Respiratory 18 18 18 Rate Blood Pressure 166/70 155/63 143/78 O2 Sat by Pulse 96 96 Oximetry Medical Decision Making - Medical Decision Making Was pt. sent in by a medical professional or institution ([facility], [facility], urgent c are, hospital, or senior care...) When possible be specific @ -Sent by PCP for possible bowel obstruction Did you speak to anyone other than the patient for history (EMS, parent, family, police, friend...)? What history was obtained from this source @ -Patient's supplemented history Did you review nursing and triage notes (agree or disagree)? Why? @ -I reviewed and agree with nursing and triage notes Were old charts reviewed (outside hosp., previous admission, EMS record, old EKG, old radiological studies, urgent care reports/EKG's, senior care records)? Report findings @ -No old charts were reviewed Differential Diagnosis (chest pain, altered mental status, abdominal pain women, abdominal pain men, vaginal bleeding, weakness, fever, dyspnea, syncope, headache, dizziness, GI bleed, back pain, seizure, CVA, palpatations, mental health, musculoskeletal)? @ -Differential abdominal Pain Women: Appendicitis, Cholecystitis, diverticulosis, ischemic bowel, pancreatitis, hepatitis, UTI, gastroenteritis, AAA, incarcerated hernia, bowel obstruction, constipation, inflammatory bowel, hepatitis, peptic ulcer disease, splenic infarction, perforated viscus, vulvitis, ovarian torsion, PID, kidney stone, placenta abruption, this is not meant to be an all-inclusive list EKG interpreted by me (3pts min.). @ -None X-rays interpreted by me (1pt min.). @ -None done CT interpreted by me (1pt min.). @ -CT reveals no evidence of bowel obstruction U/S interpreted by me (1pt. min.). @ -None done What testing was considered but not performed or refused? (CT, X-rays, U/S, labs)? Why? @ -None What meds were considered but not given or refused? Why? @ -None Did you discuss the management of the patient with other professionals (professionals i.e. [facility], [facility], lab, RT, psych nurse, forensic social worker, pickling operator, teacher, weapons officer, case advocate)? Give summary @ -No Was smoking cessation discussed for >3mins.? @ -No Was critical care preformed (if so, how long)? @ -No Were there social determinants of health that impacted care today? How? (Homelessness, low income, unemployed, alcoholism, drug addiction, transportation, low edu. Level, literacy, decrease access to med. care, fpc, rehab)? @ -No Was there de-escalation of care discussed even if they declined (Discuss DNR or withdrawal of care, Hospice)? DNR status @ -No What co-morbidities impacted this encounter? (DM, HTN, Smoking, COPD, CAD, Cancer, CVA, ARF, Chemo, Hep., AIDS, mental health diagnosis, sleep apnea, morbid obesity)? @ -None Was patient admitted / discharged? Hospital course, mention meds given and route, prescriptions, significant lab abnormalities, going to OR and other pertinent info. @ -Patient was discharged. Patient was seen and evaluated for abdominal pain x 1 week. Sent by PCP for possible bowel obstruction. Patient has been taking lactulose for constipation and reports stool is loose and watery. Vitals and physical examination are unremarkable. CT abdomen reveals no evidence of bowel obstruction. Lab work remarkable for hyponatremia at 126. 1 L bolus of IV fluids given. Discussed with patient abdominal pain is likely caused by gas and stool. Supportive care discussed. Patient given option for more IV fluids and recheck. Risks discussed with patient in detail. Patient shows understanding and decides to follow-up with PCP in 3 to 5 days for sodium recheck. Strict/return symptoms discussed with patient. Patient discharged in stable condition. Case discussed with Dr. Jimenez Undiagnosed new problem with uncertain prognosis? @ -No Drug Therapy requiring intensive monitoring for toxicity (Heparin, Nitro, Insulin, Cardizem)? @ -No Were any procedures done? @ -No Diagnosis/symptom? @ -constipation, hyponatremia Acute, or Chronic, or Acute on Chronic? @ -Acute Uncomplicated (without systemic symptoms) or Complicated (systemic symptoms)? @ -uncomplicated Side effects of treatment? @ -No Exacerbation, Progression, or Severe Exacerbation? @ -No Poses a threat to life or bodily function? How? (Chest pain, [place], [place], pneumonia, PE, COPD, DKA, ARF, appy, cholecystitis, CVA, Diverticulitis, Homicidal, Suicidal, threat to staff... and all critical care pts) @ -No - Lab Data Result diagrams: 03/13/24 17:57 03/13/24 17:57 Lab Results 03/13/24 03/13/24 03/13/24 Range/Units 17:57 17:57 17:57 WBC 10.5 (3.8-10.6) k/uL RBC 4.89 (3.80-5.40) m/uL Hgb 13.5 (11.4-16.0) gm/dL Hct 39.7 (34.0-46.0) % MCV 81.2 (80.0-100.0) fL MCH 27.6 (25.0-35.0) pg MCHC 34.0 (31.0-37.0) g/dL RDW 14.9 (11.5-15.5) % Plt Count 271 (150-450) k/uL MPV 9.2 Neutrophils % 62 % Lymphocytes % 29 % Monocytes % 4 % Eosinophils % 1 % Basophils % 1 % Neutrophils # 6.5 (1.3-7.7) k/uL Lymphocytes # 3.1 (1.0-4.8) k/uL Monocytes # 0.5 (0-1.0) k/uL Eosinophils # 0.2 (0-0.7) k/uL Basophils # 0.1 (0-0.2) k/uL Sodium 126 L (137-145) mmol/L Potassium 3.3 L (3.5-5.1) mmol/L Chloride 89 L (98-107) mmol/L Carbon Dioxide 24 (22-30) mmol/L Anion Gap 13 mmol/L BUN 4 L (7-17) mg/dL Creatinine 0.76 (0.52-1.04) mg/dL Est GFR (CKD-EPI)AfAm >90 (>60 ml/min/1.73 sqM) Est GFR (CKD-EPI)NonAf 81 (>60 ml/min/1.73 sqM) Glucose 94 (74-99) mg/dL Plasma Lactic Acid Jaime 1.1 (0.7-2.0) mmol/L Calcium 10.4 H (8.4-10.2) mg/dL Total Bilirubin 0.7 (0.2-1.3) mg/dL AST 47 H (14-36) U/L ALT 33 (4-34) U/L Alkaline Phosphatase 74 (38-126) U/L Total Protein 7.2 (6.3-8.2) g/dL Albumin 4.6 (3.5-5.0) g/dL Lipase 74 (23-300) U/L Disposition Clinical Impression: Constipation, Hyponatremia Disposition: HOME SELF-CARE Condition: Stable Instructions (If sedation given, give patient instructions): Constipation (ED) Additional Instructions: Please follow-up with PCP in 3 to 5 days for sodium level recheck. Please return to the Emergency Department if symptoms worsen or any other concerns. Is patient prescribed a controlled substance at d/c from ED?: No Referrals: Alverto Bro MD [Primary Care Provider] - 1-2 days Time of Disposition: 23:05
[2024-03-13] MEDS: SODIUM CHLORIDE 0.9% 1,000 ML IV STA (18:00)
[2024-03-13 18:35] LABS: Basophils # (A) 0.1 k/uL (0-0.2); Basophils % (A) 1 %; Eosinophils # (A) 0.2 k/uL (0-0.7); Eosinophils % (A) 1 %; HCT 39.7 % (34.0-46.0); HGB 13.5 gm/dL (11.4-16.0); Lymphocytes # (A) 3.1 k/uL (1.0-4.8); Lymphocytes % (A) 29 %; MCH 27.6 pg (25.0-35.0); MCV 81.2 fL (80.0-100.0); Mean Platelet Volume 9.2; Monocytes # (A) 0.5 k/uL (0-1.0); Monocytes % (A) 4 %; Neutrophils # (A) 6.5 k/uL (1.3-7.7); Neutrophils % (A) 62 %; Platelet Count 271 k/uL (150-450); RBC 4.89 m/uL (3.80-5.40); RDW 14.9 % (11.5-15.5); WBC 10.5 k/uL (3.8-10.6)
[2024-03-13 18:58] LABS: ALT 33 U/L (4-34); AST 47 U/L (14-36); African American GFR (CKD) >90 (>60 ml/min/1.73 sqM); Albumin 4.6 g/dL (3.5-5.0); Alkaline Phosphatase 74 U/L (38-126); Anion Gap 13 mmol/L; Blood Urea Nitrogen 4 mg/dL (7-17); Calcium 10.4 mg/dL (8.4-10.2); Carbon Dioxide 24 mmol/L (22-30); Chloride 89 mmol/L (98-107); Glucose 94 mg/dL (74-99); Lipase 74 U/L (23-300); Non-African American GFR(CKD) 81 (>60 ml/min/1.73 sqM); Potassium 3.3 mmol/L (3.5-5.1); Sodium 126 mmol/L (137-145); Total Bilirubin 0.7 mg/dL (0.2-1.3); Total Protein 7.2 g/dL (6.3-8.2)
--- NOTE | 2024-03-13 22:48 | CT ---
EXAMINATION TYPE: CT abdomen pelvis w con CT DLP: 781.7 mGycm, Automated exposure control for dose reduction was used. DATE OF EXAM: 03/13/2024 8:12 PM COMPARISON: None. CLINICAL INDICATION:Female, 68 years old with history of abdominal pain; generalized abd pain. hx of colostomy. TECHNIQUE: Axial CT of the abdomen and pelvis. Sagittal and coronal reformats were created on a [employer] workstation. Contrast used:100 ml mL of Isovue 300 with IV Contrast, (none if empty) Oral contrast used: without Oral Contrast (none if empty) FINDINGS: LOWER CHEST: Unremarkable ABDOMEN LIVER: Unremarkable GALLBLADDER AND BILE DUCTS: Unremarkable gallbladder. No biliary ductal dilatation. PANCREAS: Unremarkable. SPLEEN: Unremarkable. ADRENAL GLANDS: Unremarkable. KIDNEYS AND URETERS: Kidneys enhance symmetrically. No evidence of hydronephrosis or visible renal ca lculus. The ureters are unremarkable. PELVIS BLADDER: Mildly distended, otherwise unremarkable REPRODUCTIVE: Uterus is present and deviates into the left pelvis. The ovaries are not readily identi fied. ABDOMEN & PELVIS STOMACH AND BOWEL: Stomach and small bowel are nondistended, no evidence of obstruction. The append ix appears within normal limits. There is gas, stool, and some high density intraluminal contents khan ggesting foreign matter in the colon. Right colon is moderately distended, there is degenerative stra ightening gas and fecal matter in the colon continuing distally. There is an intact appearing sigmoid anastomosis.. PERITONEUM/RETROPERITONEUM: No evidence of pneumoperitoneum or free fluid. VASCULATURE: Moderate to severe atherosclerotic calcifications are present throughout the abdominal a caleb and its branches. No evidence of aortic aneurysm. Portal veins are enhancing. Splenic vein is patent. LYMPH NODES: No enlarged nodes by CT size criteria. There may be mild stranding in the anterior abdom inal wall which could indicate prior hernia repair. SOFT TISSUE/ABDOMINAL WALL: Unremarkable MUSCULOSKELETAL: No acute osseous abnormalities. Mild disc degeneration changes are present throughou t the thoracolumbar spine. Grade 1 degenerative anterolisthesis of L4 on L5. IMPRESSION: 1. No evidence of bowel obstruction or free air. 2. Moderate amount of liquid appearing fecal matter and gas in the right colon, decreasing distally. Correlate clinically for acute diarrheal illness. 3. Anastomosis in the mid sigmoid region, appears intact. There is no definite evidence of associate d obstruction.
[2024-03-13 23:26] VITALS: BP 143/78; PULSE 60
== END 2024-03-13 23:14 | disposition home or self-care (01) ==
LOC: EC 16:55
DX: K59.00 Constipation, unspecified (principal); E87.1 Hypo-osmolality and hyponatremia; Z87.891 Personal history of nicotine dependence; Z88.2 Allergy status to sulfonamides
CPT/HCPCS: 36415; 80053; 83605; 83690; 85025; 74177; 99284; 96360; Q9967

== ENCOUNTER → 2024-04-02 | Day surgery (SDC) | payer MEDICARE ==
[2024-04-01 14:36] VITALS: BMI 27.4
[~2024-04-02] MED LIST changes: -LACTATED RINGERS 1,000 ML IV SCH; +PROPOFOL 10 MG/ML 20 ML VIAL IV ONE
[2024-04-02] MEDS: LACTATED RINGERS 1,000 ML IV SCH (10:56)
[2024-04-02] MEDS: LIDOCAINE 1% (10MG/ML) FOR IV START INTRADERMA ONE (10:56)
[2024-04-02 10:58] LABS: Glucose,Whole Blood 77 mg/dL (70-110)
[2024-04-02] MEDS: LACTATED RINGERS 1,000 ML IV ONE ×2 (11:01→11:25)
--- NOTE | 2024-04-02 11:07 | P.GSHP ---
History of Present Illness H&P Date: 04/02/24 Chief Complaint: constipation,, abdominal pain is a 68-year-old female who presents today for EGD colonoscopy. Patient points of abdominal pain and constipation. Past Medical History Past Medical History: Hyperlipidemia, Hypertension, Musculoskeletal Disorder, Thyroid Disorder Additional Past Medical History / Comment(s): Hx perforated bowel D/T Diverticulitis; Chronic back pain. Urine leakage. Severe constipation. History of Any Multi-Drug Resistant Organisms: None Reported Past Surgical History: Bowel Resection, Hernia Repair, Orthopedic Surgery, Tubal Ligation Additional Past Surgical History / Comment(s): COLONOSCOPY; Bowel Resection w/ Colostomy & then Reversal; Bilat eye proc (RetinaNA); Cataracts; Rt Thumb; Hernia repair x2 Past Anesthesia/Blood Transfusion Reactions: Motion Sickness, Postoperative Nausea & Vomiting (PONV) Additional Past Anesthesia/Blood Transfusion Reaction / Comment(s): states lost her hair after getting anesthesia. Smoking Status: Former smoker - Past Family History Mother Family Medical History: Cancer, Deep Vein Thrombosis (DVT) Additional Family Medical History / Comment(s): breast cancer w/ mets to bones Medications and Allergies Home Medications Medication Instructions Recorded Confirmed Type Atorvastatin [Lipitor] 40 mg PO HS 06/28/16 04/02/24 History Baclofen [Lioresal] 20 mg PO BID PRN 06/28/16 04/02/24 History Levothyroxine Sodium [Synthroid] 75 mcg PO DAILY 06/28/16 04/02/24 History Sertraline [Zoloft] 100 mg PO AC-SUPPER 06/28/16 04/02/24 History Cholecalciferol (Vitamin D3) 2,000 unit PO DAILY 08/06/17 04/02/24 History [Vitamin D3] Multivitamins, Thera [Multivitamin 1 tab PO DAILY 08/06/17 04/02/24 History (formulary)] HYDROcodone/APAP 7.5-325MG [[place] 1 tab PO Q6HR PRN #20 tab 08/11/17 04/02/24 Rx 7.5-325] Ferrous Sulfate [Feosol] 325 mg PO DAILY 04/11/22 04/02/24 History Azithromycin [Zithromax Z Pack] 1 tab PO DIRECTED 04/01/24 04/02/24 History Losartan Potassium 100 mg PO DAILY 04/01/24 04/02/24 History amLODIPine BESYLATE 5 mg PO DAILY 04/01/24 04/02/24 History predniSONE 2.5 mg PO DAILY 04/01/24 04/02/24 History Allergies Allergy/AdvReac Type Severity Reaction Status Date / Time Sulfa (Sulfonamide Allergy Rash/Hives Verified 04/02/24 10:33 Antibiotics) Surgical - Exam Vital Signs Temp Pulse Resp BP Pulse Ox 97.7 F 70 18 189/88 96 04/02/24 10:54 04/02/24 10:54 04/02/24 10:54 04/02/24 10:54 04/02/24 10:54 - General well developed, well nourished, no distress - Eyes PERRL - ENT normal pinna - Neck no masses - Respiratory normal expansion - Cardiovascular Rhythm: regular - Abdomen Abdomen: soft, non tender Assessment and Plan Assessment: patient, dull pain. We'll perform EGD and colonoscopy.
[2024-04-02 11:13] VITALS: TEMP 97.7
--- NOTE | 2024-04-02 11:27 | P.OP ---
Description of Procedure: patient's placed on the endoscopy table in the lateral position. She received IV sedation. The gastro-/oropharynx passed in the esophagus and stomach. Scope was then placed through the pylorus. The first and second portion of the duodenum appeared normal. Scope was then brought back the antrum was mildly inflamed. A biopsies performed. Scope was then retroflexed the remainder the stomach appeared normal. Patient had a moderate size hiatal hernia. The GE junction was at 38 cm per the distal esophagus. Minimal inflamed. A biopsies was performed. The proximal esophagus. Normal. Scope was withdrawn for patient. Next digital rectal exam was performed.'s revealed no abnormalities. Possible colonoscope was then placed patient anus passed throughout the entire colon. The ileocecal valve was visualized. Cecum, ascending colon and transverse colon appeared normal. In the descending colon there was a few scattered diverticuli. Patient previous sigmoid resection. Scope was brought back into the rectum this appeared normal. Scope withdrawn for patient.
[2024-04-02 12:11] VITALS: BP 147/71; PULSE 56; RESP 16
== END | disposition home or self-care (01) ==
LOC: ORWHC2ENDO 09:49
PROVIDERS: ATTEND Surgery
DX: K29.50 Unspecified chronic gastritis without bleeding (principal); K44.9 Diaphragmatic hernia without obstruction or gangrene; I10 Essential (primary) hypertension; E78.5 Hyperlipidemia, unspecified; E07.9 Disorder of thyroid, unspecified; G89.29 Other chronic pain; Z98.51 Tubal ligation status; Z98.890 Other specified postprocedural states; Z79.899 Other long term (current) drug therapy; Z87.891 Personal history of nicotine dependence; Z86.73 Personal history of transient ischemic attack (TIA), and cerebral infarction without residual deficits; Z80.3 Family history of malignant neoplasm of breast; Z79.890 Hormone replacement therapy; Z79.52 Long term (current) use of systemic steroids; Z88.2 Allergy status to sulfonamides
CPT/HCPCS: 88305; 43239; J2704; G0121

== ENCOUNTER → 2024-04-16 | Outpatient (CLI) | payer MEDICARE ==
[2024-04-16 19:49] LABS: Basophils # (A) 0.05 X 10*3/uL (0.00-0.10); Basophils % (A) 0.7 %; Eosinophils # (A) 0.14 X 10*3/uL (0.04-0.35); Eosinophils % (A) 1.8 %; HCT 36.2 % (37.2-46.3); HGB 12.2 g/dL (12.0-15.0); Lymphocytes # (A) 2.52 X 10*3/uL (0.90-5.00); Lymphocytes % (A) 32.8 %; MCHC 33.7 g/dL (32.0-37.0); MCV 83.2 FL (80.0-97.0); Mean Platelet Volume 11.7 FL (9.5-12.2); Monocytes % (A) 6.5 %; NRBC Per 100 WBC 0 X 10*3/uL (0.00-0.01); Neutrophils # (A) 4.45 X 10*3/uL (1.80-7.70); Neutrophils % (A) 57.9 %; Platelet Count 240 X 10*3/uL (140-440); RBC 4.35 X 10*6/uL (4.10-5.20); RDW 14.3 % (11.5-14.5); WBC 7.68 X 10*3/uL (4.50-10.00)
== END | disposition home or self-care (01) ==
LOC: LABPAT 14:05
PROVIDERS: ATTEND Surgery
DX: Z01.818 Encounter for other preprocedural examination (principal); K44.9 Diaphragmatic hernia without obstruction or gangrene; R94.31 Abnormal electrocardiogram [ECG] [EKG]
CPT/HCPCS: 36415; 85025; 93005

== ENCOUNTER 2024-04-29 06:52 | Day surgery (SDC) | payer MEDICARE ==
[2024-04-29] MEDS ORDERED: HYDROmorphone 0.5 MG/0.5 ML SYRINGE IVP PRN (07:12)
[2024-04-29] MEDS ORDERED: MIDAZOLAM 2 MG/2 ML VIAL IV PRN (07:12)
[2024-04-29] MEDS ORDERED: fentaNYL (PF) 50 MCG/ML 2 ML AMP IVP PRN (07:12)
[2024-04-29] MEDS: IV FLUID CONTINUATION 1,000 ML IV ONE (08:12)
[2024-04-29] MEDS: LIDOCAINE 1% (10MG/ML) FOR IV START INTRADERMA PRN (08:13)
[2024-04-29] MEDS: LACTATED RINGERS 1,000 ML IV SCH (08:13)
[2024-04-29] MEDS: ONDANSETRON 4 MG/2 ML VIAL IVP ONE (08:13)
[2024-04-29] MEDS: DEXAMETHASONE SOD PHOSPHATE 4 MG/ML 1 ML VIAL IV ONE (08:14)
[2024-04-29] MEDS: SCOPOLAMINE 1 MG/72 HR PATCH TRANSDERM STA (08:20)
[2024-04-29] MEDS: FAMOTIDINE 20 MG/2 ML VIAL IV STA (08:20)
[2024-04-29] MEDS ORDERED: HYDROmorphone (PF) 1 MG/ML ONE (08:24)
[2024-04-29] MEDS ORDERED: ROCURONIUM 10 MG/ML (5 ML VIAL) IV ONE (08:24)
[2024-04-29] MEDS: HEPARIN SODIUM,PORCINE 5,000 UNIT/ML 1 ML VIAL SQ STA (08:24)
[2024-04-29] MEDS ORDERED: NEOSTIGMINE 1 MG/ML 10 ML VIAL ONE (08:24)
[2024-04-29] MEDS ORDERED: GLYCOPYRROLATE 0.2 MG/ML 2 ML VIAL ONE (08:24)
[2024-04-29] MEDS ORDERED: SUCCINYLCHOLINE CHLORIDE 200 MG/10 ML VIAL IV ONE (08:24)
[2024-04-29] MEDS ORDERED: LIDOCAINE 1% INJ 10MG/ML (20 ML MDV) ONE (08:24)
[2024-04-29] MEDS ORDERED: KETOROLAC 15 MG/ML 1 ML VIAL ONE (08:24)
[2024-04-29] MEDS ORDERED: hydrALAZINE HCL 20 MG/ML 1 ML VIAL ONE (08:24)
[2024-04-29] MEDS ORDERED: fentaNYL (PF) 50 MCG/ML 2 ML AMP ONE (08:24)
[2024-04-29] MEDS ORDERED: PROPOFOL 10 MG/ML 20 ML VIAL IV ONE (08:24)
[2024-04-29] MEDS ORDERED: MIDAZOLAM 2 MG/2 ML VIAL ONE (08:24)
[2024-04-29] MEDS: LIDOCAINE 1%-EPI 1:100,000 20 ML VIAL SQ ONE (08:55)
[2024-04-29] MEDS ORDERED: ONDANSETRON 4 MG/2 ML VIAL IVP PRN (09:30)
--- NOTE | 2024-04-29 09:30 | P.OP ---
Date of Procedure: 04/29/24 Preoperative Diagnosis: GERD Hiatal hernia Postoperative Diagnosis: GERD Hiatal hernia Procedure(s) Performed: laparoscopic Compa fundoplication Anesthesia: HENOK Surgeon: Prasad Bhagat Estimated Blood Loss (ml): 5 Pathology: none sent Condition: stable Disposition: PACU Description of Procedure: HThe patient was placed on the operating table in the supine position. The patient received general anesthesia. And was placed in dorsal lithotomy position. The patient was prepped and draped in the usual sterile fashion. The skin incision sites were anesthetized with 1% local Xylocaine. The skin was incised in the left periumbilical area and then using a blade less 5 mm trocar under direct visualization panel cavity was entered. After adequate insufflation the laparoscope was then placed into the peritoneal cavity. Next a 5 mm trochars placed in the right epigastric position. Another 5 millimeter trocar the right lateral position. Another 5 millimeter trocar in the left lateral position a 5 mm trocar is placed in the left epigastric position. And then the initial 5 mm trocar was exchanged for a 10 mm trocar. The left lateral lobe liver was retracted. The hernia was seen. The crural defect was then dissected using the Harmonic scissors device. A 360 crural dissection was performed the esophagus stomach was reduced back into the peritoneal Cavity. The crural defect was then closed using 2-0 Ethibond suture. Next the fundus of the stomach was mobilized using the [place] scissors device. and then a 58- Faroese bougie dilator was placed oropharynx passed into the esophagus and stomach the fundal plication wrap was then performed by grasping the fundus posteriorly and bringing it around the esophagus and stomach fundoplication was then performed using 2-0 Ethibond suture. Care was taken that the fundal location rested over top of the intra-abdominal esophagus. There was no injury seen to the stomach or esophagus. The dilator was then withdrawn. The abdomen was irrigated there is no bleeding seen. The trochars were then withdrawn and then skin incision sites were closed using 3-0 Monocryl suture Steri-Strips are applied. Patient thought procedure well and sent to recovery room in stable condition.
[2024-04-29] MEDS: droPERidol 5 MG/2 ML VIAL IVP ONE (09:41)
[2024-04-29] MEDS: D5-0.45% NACL WITH KCL 20MEQ/L 1,000 ML IV SCH (11:40)
[2024-04-29 14:41] VITALS: BMI 26.5
[2024-04-29] MEDS ORDERED: BACLOFEN 10 MG TAB PO PRN (17:40)
[2024-04-29] MEDS: HYDROcodone/APAP 7.5-325MG 1 EACH TAB PO PRN (18:36)
[2024-04-29] MEDS: SERTRALINE 100 MG TAB PO SCH (21:49)
[2024-04-29] MEDS: ATORVASTATIN 40 MG TAB PO SCH (21:50)
[2024-04-30 03:06] VITALS: TEMP 97.9
[2024-04-30] MEDS: LEVOTHYROXINE 75 MCG TAB PO SCH (06:20)
[2024-04-30] MEDS: LOSARTAN 50 MG TAB PO SCH (07:59)
[2024-04-30] MEDS: amLODIPine 5 MG TAB PO SCH (07:59)
[2024-04-30] MEDS: ENOXAPARIN 40 MG/0.4 ML SYRINGE SQ SCH (08:00)
[2024-04-30 08:05] VITALS: BP 156/72; PULSE 53; RESP 17
--- NOTE | 2024-04-30 09:00 | P.CONS ---
History of Present Illness - Reason for Consult Consult date: 04/30/24 Medical management hypertension, hypothyroidism Requesting physician: Prasad Bhagat - Chief Complaint Gastroesophageal reflux disease, hiatal hernia - History of Present Illness This is a pleasant 68-year-old female with past medical history significant for gastroesophageal reflux disease, hypertension, hyperlipidemia, hypothyroidism, diverticulosis, multiple abdominal surgeries, anxiety, depression, former nicotine dependence, PONV, status post laparoscopic Niesen fundoplication secondary to gastroesophageal reflux disease and hiatal hernia. Tolerated procedure well. Pain controlled. maintained on IV fluid hydration .reports she feels hungry, tolerating Niesen clear liquid diet. Denies nausea vomiting or diarrhea. Denies bloating. Denies bowel movement. Passing flatus. Denies chills or sweats. Denies chest pain, palpitations or shortness of breath. Review of Systems ROS Statement: Those systems with pertinent positive or pertinent negative responses have been documented in the HPI. ROS Other: All systems not noted in ROS Statement are negative. Past Medical History Past Medical History: GERD/Reflux, Hyperlipidemia, Hypertension, Musculoskeletal Disorder, Thyroid Disorder Additional Past Medical History / Comment(s): Hx perforated bowel D/T Diverticulitis; Chronic back pain. Urine leakage. Severe constipation. History of Any Multi-Drug Resistant Organisms: None Reported Past Surgical History: Bowel Resection, Hernia Repair, Orthopedic Surgery, Tubal Ligation Additional Past Surgical History / Comment(s): COLONOSCOPY; Bowel Resection w/ Colostomy & then Reversal; Bilat eye proc ([facility]); Cataracts; Rt Thumb; Hernia repair x2 Past Anesthesia/Blood Transfusion Reactions: Motion Sickness, Postoperative Nausea & Vomiting (PONV) Additional Past Anesthesia/Blood Transfusion Reaction / Comm: states lost her hair after getting anesthesia. Past Psychological History: Anxiety, Depression Smoking Status: Former smoker Past Alcohol Use History: None Reported Additional Past Alcohol Use History / Comment(s): STARTED SMOKING AT AGE 16, QUIT AT AGE 34, SMOKED 1PPD. Past Drug Use History: None Reported - Past Family History Mother Family Medical History: Cancer, Deep Vein Thrombosis (DVT) Additional Family Medical History / Comment(s): breast cancer w/ mets to bones Medications and Allergies Home Medications Medication Instructions Recorded Confirmed Type Atorvastatin [Lipitor] 40 mg PO 1700 06/28/16 04/29/24 History Baclofen [Lioresal] 20 mg PO BID PRN 06/28/16 04/29/24 History Levothyroxine Sodium [Synthroid] 75 mcg PO DAILY 06/28/16 04/29/24 History Sertraline [Zoloft] 100 mg PO AC-SUPPER 06/28/16 04/29/24 History Cholecalciferol (Vitamin D3) 2,000 unit PO WEEKLY 08/06/17 04/29/24 History [Vitamin D3] Multivitamins, Thera [Multivitamin 1 tab PO DAILY 08/06/17 04/29/24 History (formulary)] HYDROcodone/APAP 7.5-325MG [[place] 1 tab PO Q6HR PRN #20 tab 08/11/17 04/29/24 Rx 7.5-325] Ferrous Sulfate [Iron (65 MG 325 mg PO DAILY 04/11/22 04/29/24 History Elemental)] Losartan Potassium 100 mg PO DAILY 04/01/24 04/29/24 History amLODIPine BESYLATE 5 mg PO DAILY 04/01/24 04/29/24 History Allergies Allergy/AdvReac Type Severity Reaction Status Date / Time Sulfa (Sulfonamide Allergy Rash/Hives Verified 04/29/24 07:55 Antibiotics) Physical Exam Vitals: Vital Signs Temp Pulse Pulse Resp BP Pulse Ox 04/30/24 08:00 97.9 F 53 L 17 156/72 98 04/30/24 02:25 97.9 F 54 L 18 128/63 96 04/29/24 20:30 97.8 F 54 L 18 153/67 96 04/29/24 14:00 97.6 F 72 17 143/67 95 04/29/24 12:36 74 160/63 97 04/29/24 12:08 75 154/71 92 L 04/29/24 11:50 59 L 16 04/29/24 11:36 49 L 159/72 95 04/29/24 11:21 48 L 165/70 95 04/29/24 11:06 44 L 147/67 94 L 04/29/24 10:51 41 L 157/63 94 L 04/29/24 10:37 97.3 F L 48 L 16 151/57 94 L 04/29/24 10:17 59 L 16 147/65 93 L 04/29/24 10:01 53 L 16 159/69 95 04/29/24 09:46 64 16 159/69 99 04/29/24 09:31 97.1 F L 104 H 14 171/72 100 Intake and Output 04/29/24 04/30/24 04/30/24 22:59 06:59 14:59 Intake Total 560 Balance 560 Intake: Oral 560 Other: # Voids 3 PHYSICAL EXAM: VITAL SIGNS: [As above] GENERAL: Pleasant, alert and oriented x 3, sitting up in bed, no acute distress HEENT: Normocephalic, atraumatic, conjunctivae normal. eyes normal. MMM. NECK: Supple ,no JVD. CARDIOVASCULAR: S1, S2 regular. No murmur RESPIRATION: Unlabored, equal air entry, clear to auscultation. ABDOMEN: Soft, status post surgery, laparoscopic sites well-approximated, dry, positive bowel sounds LEGS: No edema. no swelling NERVOUS SYSTEM: Cranial N 2-12 grossly normal. No focal deficits. Strength and sensation grossly intact. Skin: Warm and dry, no rash Assessment and Plan Assessment: Gastroesophageal reflux disease, hiatal hernia, status post laparoscopic Niesen fundoplication PONV, history of Hypertension hyperlipidemia Hypothyroidism Obesity, BMI 27 Diverticulosis, history of diverticulitis with perforated bowel. Multiple abdominal surgeries. Anxiety Depression Former nicotine dependence Plan: Continue on current medication using ,monitoring and symptomatic treatment. Home meds have been reviewed and resumed accordingly. GI, DVT prophylaxis, pain management as per primary. Increase activity as tolerated .medically cleared for discharge. Follow-up PCP in 1 week. The impression and plan of care has been dictated as directed. : I performed a history and examination of this patient, discussed the same with the dictator. I agree with the dictator's note ,documented as a scribe. Any additional findings or plans will be noted.
--- NOTE | 2024-04-30 10:09 | P.DS ---
Providers Expected date of discharge: 04/30/24 Attending physician: Prasad Bhagat Consults: 04/29/24 09:30 Consult Physician Routine Consulting Provider: Alverto Bro Consult Reason/Comments: medical management Do you want consulting provider notified?: Yes Primary care physician: Ivonne Bro Hospital Course: Discharge diagnosis 1. GERD hernia status post laparoscopic Niesen fundoplication Hospital course This is a 68-year-old female with history of GERD and hiatal hernia. She is status post laparoscopic Niesen fundoplication. Patient tolerated surgery well. Her pain is controlled. She is tolerating diet. She is up and ambulating. She is having flatus. She is afebrile. She is stable for discharge. Please refer to chart for any further details. Physician Fruit Farmer note has been reviewed by physician. Signing provider agrees with the documented findings, assessment, and plan of care. Patient Condition at Discharge: Stable Plan - Discharge Summary Discharge Rx Participant: No New Discharge Prescriptions: Continue Baclofen [Lioresal] 20 mg PO BID PRN PRN Reason: MUSCLE SPASMS Sertraline [Zoloft] 100 mg PO AC-SUPPER Levothyroxine Sodium [Synthroid] 75 mcg PO DAILY Atorvastatin [Lipitor] 40 mg PO 1700 Multivitamins, Thera [Multivitamin (formulary)] 1 tab PO DAILY Cholecalciferol (Vitamin D3) [Vitamin D3] 2,000 unit PO WEEKLY HYDROcodone/APAP 7.5-325MG [[place] 7.5-325] 1 tab PO Q6HR PRN #20 tab PRN Reason: Pain Ferrous Sulfate [Iron (65 MG Elemental)] 325 mg PO DAILY Losartan Potassium 100 mg PO DAILY amLODIPine BESYLATE 5 mg PO DAILY Discharge Medication List Atorvastatin [Lipitor] 40 mg PO 1700 06/28/16 [History] Baclofen [Lioresal] 20 mg PO BID PRN 06/28/16 [History] Levothyroxine Sodium [Synthroid] 75 mcg PO DAILY 06/28/16 [History] Sertraline [Zoloft] 100 mg PO AC-SUPPER 06/28/16 [History] Cholecalciferol (Vitamin D3) [Vitamin D3] 2,000 unit PO WEEKLY 08/06/17 [History] Multivitamins, Thera [Multivitamin (formulary)] 1 tab PO DAILY 08/06/17 [History] HYDROcodone/APAP 7.5-325MG [[place] 7.5-325] 1 tab PO Q6HR PRN #20 tab 08/11/17 [Rx] Ferrous Sulfate [Iron (65 MG Elemental)] 325 mg PO DAILY 04/11/22 [History] Losartan Potassium 100 mg PO DAILY 04/01/24 [History] amLODIPine BESYLATE 5 mg PO DAILY 04/01/24 [History] Follow up Appointment(s)/Referral(s): Alverto Bro MD [STAFF PHYSICIAN] - 1 Week Prasad Bhagat MD [STAFF PHYSICIAN] - 1 Week Activity/Diet/Wound Care/Special Instructions: No driving while taking [place] No lifting over 10 pounds You may shower. No soaking or tub baths for 2 weeks Very light activity until you are reevaluated at your follow up appointment with your surgeon Continue a Full liquid diet for 2 weeks No straws or carbonated beverages Discharge Disposition: HOME SELF-CARE
[2024-05-06] MEDS ORDERED: CHOLECALCIFEROL 25 MCG (1000 IU) TABLET PO SCH (09:00)
== END 2024-04-30 11:32 | disposition home or self-care (01) ==
LOC: OR 06:52 → EDSTATUS 09:35 → 4SSUR 09:39 → OR 04-30 11:32
PROVIDERS: ATTEND Surgery
DX: K44.9 Diaphragmatic hernia without obstruction or gangrene (principal); K21.9 Gastro-esophageal reflux disease without esophagitis; I10 Essential (primary) hypertension; E03.9 Hypothyroidism, unspecified; E78.5 Hyperlipidemia, unspecified; F41.8 Other specified anxiety disorders; E66.9 Obesity, unspecified; Z68.27 Body mass index [BMI] 27.0-27.9, adult; K57.90 Diverticulosis of intestine, part unspecified, without perforation or abscess without bleeding; Z87.19 Personal history of other diseases of the digestive system; Z88.2 Allergy status to sulfonamides; Z87.891 Personal history of nicotine dependence; Z79.890 Hormone replacement therapy; Z79.899 Other long term (current) drug therapy
CPT/HCPCS: 43280; J1644; J1100; J0690 ×2; J2405; J1650; J3490; J1790